=== PATIENT | female | born 1985 | race Caucasian/White ===

== ENCOUNTER 2017-08-23 16:01 | Emergency (ER) | payer MEDICAID, SELFPAY ==
[2017-08-23 16:02] VITALS: BP 136/102; PULSE 105; RESP 20; TEMP 36.9; O2SAT 94; BMI 69.9
--- NOTE | 2017-08-23 16:25 | ED.VISSUMM ---
- ER Visit Summary Date of Service: 08/23/17 Chief Complaint: Back pain History of Present Illness: The patient is a 31 F with no primary care physician. She reports that she has low back pain began approximately 2 months ago. It is worsened over the past 3 days. It is a constant aching pain. It is sharp with bending over, coughing, or movement. She is taken ibuprofen and used ice without relief. States it radiates around the front of her right leg to the level of her knee. She denies any numbness or weakness in her legs. No problems with her bowels or bladder. No groin numbness. No fever, chills, abdominal pain, dysuria, or frequency. Physical Examination: Vitals: Stable. Afebrile. General: A&O x 3. NAD. Cardiovascular exam: Regular rate and rhythm, no murmur, rub or gallop. Respiratory exam: Clear to auscultation bilaterally. No wheezes or stridor. Abdominal exam: Soft, nontender, nondistended, normal bowel sounds. No peritoneal signs. Back: Diffuse moderate tenderness to palpation over the lumbar spine and the paraspinous musculature in the lumbar region. No point tenderness. Negative straight leg bilaterally. 5/5 DF, PF, EHL bilaterally. Normal sensation to light touch throughout. Extremity: No clubbing, cyanosis, or edema. Emergency Department Course and Treatment: An [facility] report was obtained which show she is only had 3 prescriptions for opiates in the past year. She is treated with naproxen, [place], Valium, and prednisone. Treatment Plan: Patient will be discharged with naproxen, 12 [place], Valium, and prednisone. Instructed to follow-up with Dr. Atwood in 1 week if not improving. The symptoms of cauda equina syndrome were discussed and the patient is instructed to return for these. Disposition: To home in improved and stable condition. Impression: 1. Low back pain. This note was generated with [employer]oom dictation software. It may contain incorrect words, spelling, and punctuation that were not noted in review of the chart prior to signing ED Disposition - Plan for ED Patient: Chief Complaint: Back Instructions: ED Sciatica Prescriptions: Diazepam [Valium] 5 mg PO Q8 PRN #10 tablet PRN Reason: Muscle Spasm Hydrocodone/Acetaminophen [[place] 5-325 Tablet] 1 - 2 each PO 4X/DAY PRN PRN 3 Days #12 tablet PRN Reason: Pain Prednisone 10 mg PO DAILY #63 tablet Naproxen [Naprosyn] 500 mg PO BID #14 tablet Referrals: Alba Atwood MD [STAFF PHYSICIAN] - 1 Week if not improving
--- NOTE | 2017-08-23 16:29 | ED.DCSUM_ITS ---
- ER Visit Summary Date of Service: 08/23/17 Chief Complaint: Back pain History of Present Illness: The patient is a 31 F with no primary care physician. She reports that she has low back pain began approximately 2 months ago. It is worsened over the past 3 days. It is a constant aching pain. It is sharp with bending over, coughing, or movement. She is taken ibuprofen and used ice without relief. States it radiates around the front of her right leg to the level of her knee. She denies any numbness or weakness in her legs. No problems with her bowels or bladder. No groin numbness. No fever, chills, abdominal pain, dysuria, or frequency. Physical Examination: Vitals: Stable. Afebrile. General: A&O x 3. NAD. Cardiovascular exam: Regular rate and rhythm, no murmur, rub or gallop. Respiratory exam: Clear to auscultation bilaterally. No wheezes or stridor. Abdominal exam: Soft, nontender, nondistended, normal bowel sounds. No peritoneal signs. Back: Diffuse moderate tenderness to palpation over the lumbar spine and the paraspinous musculature in the lumbar region. No point tenderness. Negative straight leg bilaterally. 5/5 DF, PF, EHL bilaterally. Normal sensation to light touch throughout. Extremity: No clubbing, cyanosis, or edema. Emergency Department Course and Treatment: An [facility]AR[facility] report was obtained which show she is only had 3 prescriptions for opiates in the past year. She is treated with naproxen, [place], Valium, and prednisone. Treatment Plan: Patient will be discharged with naproxen, 12 [place], Valium, and prednisone. Instructed to follow-up with Dr. Atwood in 1 week if not improving. The symptoms of cauda equina syndrome were discussed and the patient is instructed to return for these. Disposition: To home in improved and stable condition. Impression: 1. Low back pain. This note was generated with 5by dictation software. It may contain incorrect words, spelling, and punctuation that were not noted in review of the chart prior to signing ED Disposition - Plan for ED Patient: Chief Complaint: Back Instructions: ED Sciatica Prescriptions: Diazepam [Valium] 5 mg PO Q8 PRN #10 tablet PRN Reason: Muscle Spasm Hydrocodone/Acetaminophen [[place] 5-325 Tablet] 1 - 2 each PO 4X/DAY PRN PRN 3 Days #12 tablet PRN Reason: Pain Prednisone 10 mg PO DAILY #63 tablet Naproxen [Naprosyn] 500 mg PO BID #14 tablet Referrals: Alba Atwood MD [STAFF PHYSICIAN] - 1 Week if not improving
[2017-08-23] MEDS: HYDROcodone Bitartrate/Apap 5/325 Tablet PO (16:47)
[2017-08-23] MEDS: Naproxen 250 MG Tablet 500 MG PO (16:47)
[2017-08-23] MEDS: predniSONE 20 MG Tablet 60 MG PO (16:47)
[2017-08-23] MEDS: diazePAM 5 MG Tablet PO (16:48)
[2017-08-23 16:52] VITALS: PULSE 94; RESP 17; O2SAT 97
== END 2017-08-23 16:52 | disposition home or self-care (01) ==
LOC: ED 16:37
PROVIDERS: Emergency Provider Emergency Medicine
DX: M54.5 Low back pain (principal); Z72.0 Tobacco use
CPT/HCPCS: 99283

== ENCOUNTER 2017-11-23 10:46 | Emergency (ER) | payer MEDICAID, SELFPAY ==
[2017-11-23 10:48] VITALS: BP 167/107; PULSE 106; RESP 18; TEMP 36.8; O2SAT 97; BMI 71.2
[2017-11-23] MEDS: HYDROcodone Bitartrate/Apap 5/325 Tablet PO (12:31)
--- NOTE | 2017-11-23 14:25 | ED.VISSUMM ---
- ER Visit Summary Date of Service: 11/23/17 Chief Complaint: [Neck pain status post fall] History of Present Illness: The patient is a 32 F [presents the emergency department complaint of back pain after sustaining a fall about 1-1/2 weeks ago. Patient states that she was going out to the mailbox in the grass was wet and she slipped and fell onto her buttocks. Patient was seen at urgent care and given indomethacin but having too much discomfort. Patient states pain at times will radiate down her right leg. Patient has had problems with her back in the past and has had sciatica in the past. Patient denies any change in bowel or bladder function. She denies weakness in extremities. She denies any head or neck injury.] Physical Examination: HEENT-PERRLA, EOMI. Cranial nerves II through XII grossly intact. TMs clear. Mucous membranes moist. No adenopathy. Cardiovascular-regular rate and rhythm without murmur or ectopy Lungs-clear to auscultation, chest wall stable without crepitus or subcu emphysema Abdomen-normoactive bowel sounds, soft, nontender, no rebound or rigidity, no peritoneal signs. Back exam-patient does have tenderness palpation diffusely over the lower lumbar spine as well as the right lumbar paraspinal musculature. Patient has tenderness into the right SI joint. She has negative straight leg raises. Deep tendon reflexes are plus out of 4 bilaterally at the patella and Achilles. Patient has normal L5 extension. Patient has normal sensation to light touch. Extremities-intact ?4, normal range of motion, normal pulses, atraumatic[] Test Results: [X-rays of the lumbar spine obtained showed no fractures. X-rays of the pelvis also obtained showed questionable widening of the pubic symphysis and recommended obtaining CT scan of the pelvis. CT of the pelvis showed no obvious fractures and the widening of the pelvis at the pubic symphysis is thought to be chronic and nonacute.] Emergency Department Course and Treatment: [She was given one Rifle in the emergency department.] Treatment Plan: [Patient will be given a prescription for R[place], Flexeril, and Naprosyn. Patient will be given referral to primary care physician for follow-up] Disposition: [Discharged home in stable condition] Impression: [Contusion back Lumbar strain] This note was generated with [employer] software. It may contain incorrect words, spelling, and punctuation that were not noted in review of the chart prior to signing ED Disposition - Plan for ED Patient: Chief Complaint: Back Referrals: Care Physician,No Primary [Primary Care Provider] -
--- NOTE | 2017-11-23 14:27 | ED.DEP ---
ED Disposition - Plan for ED Patient: Chief Complaint: Back Instructions: ED Sprain Strain Lumbar, ED Contusion Back Prescriptions: Hydrocodone/Acetaminophen [[place] 5-325 Tablet] 1 - 2 ea PO 4X/DAY PRN PRN 5 Days #20 tab PRN Reason: Pain Naproxen [Naprosyn] 500 mg PO BID PRN #20 tab Cyclobenzaprine [Flexeril] 10 mg PO TID PRN #20 tab PRN Reason: Muscle Spasm Referrals: Care Physician,No Primary [Primary Care Provider] - Karsten Alarcon MD [STAFF PHYSICIAN] - 3-5 Days
[2017-11-23 14:47] VITALS: PULSE 80; RESP 15; O2SAT 95
== END 2017-11-23 14:48 | disposition home or self-care (01) ==
LOC: ED 11:25
PROVIDERS: Emergency Provider Emergency Medicine
DX: S39.012A Strain of muscle, fascia and tendon of lower back, initial encounter (principal); S30.0XXA Contusion of lower back and pelvis, initial encounter; W01.0XXA Fall on same level from slipping, tripping and stumbling without subsequent striking against object, initial encounter; Y93.9 Activity, unspecified; Y92.9 Unspecified place or not applicable; Y99.9 Unspecified external cause status; Z72.0 Tobacco use; Z79.899 Other long term (current) drug therapy
CPT/HCPCS: 72100; 72170; 72192; 99282

== ENCOUNTER 2017-12-29 13:12 | Emergency (ER) | payer MEDICAID, SELFPAY ==
[2017-12-29 13:12] VITALS: BP 141/93; PULSE 90; RESP 18; TEMP 36.6; O2SAT 98; BMI 70.0
--- NOTE | 2017-12-29 13:57 | ED.DCSUM_ITS ---
- ER Visit Summary Date of Service: 12/29/17 Chief Complaint: Tingling down the back of her right leg. History of Present Illness: The patient is a 32 F history of hip spurs. Patient states she has had low back pain and pain radiating to her right buttock and down hamstring of her right leg. This is been ongoing for last 1-2 weeks. Worse with lifting her leg. She spoke to a nurse over the phone and wanted to have it checked out to make sure was no blood clot. She has never had a DVT or PE. She is on no control pills. She has had no recent travel, surgery or mobilization. She denies any calf pain or swelling. No chest pain or shortness of breath. Physical Examination: Well-appearing female no acute distress. Vital signs stable afebrile. Pulse ox 90% on room air no signs of hypoxia. HEENT exam unremarkable neck nontender. Lungs clear to auscultation bilaterally. Heart regular rhythm no murmur. Abdomen morbidly obese but soft nontender nondistended normal bowel sounds no peritoneal signs. She is moving all 4 extremities. They are neurovascularly intact. Dorsi plantar flexion intact. Normal DP pulse. Normal sensation, motor strength and range of motion of both lower extremities. She has a positive straight leg raise on the right at about 30?. There is no calf tenderness. No edema. No signs of a DVT. Back exam she has tenderness of her right SI joint. His spine is otherwise unremarkable. Neurologic exam is normal. No focal motor or sensory deficits. Test Results: None Emergency Department Course and Treatment: Exam and history are consistent with acute right sciatica. There are no clinical signs or history signs of this being a DVT. Treatment Plan: Patient currently is on indomethacin. She will continue that and follow-up with primary. Disposition: Discharge Impression: Acute right sciatica This note was generated with [employer] dictation software. It may contain incorrect words, spelling, and punctuation that were not noted in review of the chart prior to signing ED Disposition - Plan for ED Patient: Chief Complaint: Lower Extremity Injury Referrals: Care Physician,No Primary [Primary Care Provider] -
--- NOTE | 2017-12-29 13:57 | ED.DEP ---
ED Disposition - Plan for ED Patient: Disposition: Home or Assisted Living Chief Complaint: Lower Extremity Injury Instructions: ED Sciatica Referrals: Care Physician,No Primary [Primary Care Provider] - 3-5 Days if not improving Additional Instructions: Ice to right lower back. Continue the indomethacin. Follow-up your doctor if not improving.
[2017-12-29 14:07] VITALS: BP 148/70; PULSE 95; RESP 14; O2SAT 98
== END 2017-12-29 14:21 | disposition home or self-care (01) ==
PROVIDERS: Emergency Provider Emergency Medicine
DX: M54.41 Lumbago with sciatica, right side (principal); Z79.899 Other long term (current) drug therapy
CPT/HCPCS: 99282

== ENCOUNTER 2018-01-11 19:11 | Emergency (ER) | payer MEDICAID, SELFPAY ==
[2018-01-11 19:12] VITALS: BP 161/81; PULSE 100; RESP 15; TEMP 36.8; O2SAT 95; BMI 70.3
--- NOTE | 2018-01-11 19:34 | RAD_ITS ---
STUDY: X-RAY - SOFT TISSUE NECK REASON FOR EXAM: Female, 32 years old. TONGUE SWELLING Tamp; BURNING, SORE THROAT AND DRY MOUTH, PT TOOK NEW MEDICINE TODAY TECHNIQUE: 2 view(s) of the neck were obtained. COMPARISON: None. FINDINGS: Normal visualized nasopharynx, oropharynx, hypopharynx. Normal epiglottis. Normal visualized subglottic tracheal air column. Normal prevertebral soft tissue structures. Normal visualized osseous structures. The soft tissue structures are unremarkable. RAD/Neck for Soft Tissue IMPRESSION: Normal x-ray soft tissue neck. Electronically Signed: Dereck Saini MD at 20:12 EDT Tel , Service support ,
--- NOTE | 2018-01-11 19:44 | ED.RN ---
PT REPORTS THAT SHE IS NOT SOB AND NOT HAVING ANY DIFFICULTY BREATHING. ITS THAT FEELING LIKE WHEN YOU BURN YOUR TONGUE ON SOMETHING HOT. ITS SCRATCHY AND DRY AND JUST STARTED AFTER I STARTED THIS ZANAFLEX.
--- NOTE | 2018-01-11 20:31 | ED.VISSUMM ---
- ER Visit Summary Date of Service: 01/11/18 Chief Complaint: Patient presents because she believes she is having a reaction to the medication she was prescribed. History of Present Illness: The patient is a 32 F who was prescribed a muscle relaxant. She presents because of burning of her tongue, sublingual region and swelling of her tongue. She contacted the nurse warp tension tester who recommended she come to the emergency department. She has had no drooling. There is no dysphonia. She states she believes something was wrong with the base of her tongue. She denies rhinorrhea, congestion or postnasal drainage. She denies earache, decreased hearing or ringing in her ears. She denies any cardiac respiratory symptoms. Physical Examination: Vital signs noted and pressure is 161/81. BMI is 70.4. Head is atraumatic no cephalic. Pupils equal round reactive paradoxic muscle intact. Sclerae anicteric. Conjunctive is not injected. TMs are normal. There is no angioedema involving the lips, tongue or uvula. Trach is midline. There is no stridor. There is no cervical lymphadenopathy. Heart is regular without murmur, gallop or rub. S1 and S2 are normal. Lungs are clear to auscultation with good movement of air bilaterally. Test Results: Two-view soft tissue x-ray of the neck was obtained interpreted by me as negative. There is no evidence of epiglottitis, sublingual lymphadenopathy, prevertebral space swelling or any abnormality. Emergency Department Course and Treatment: Because patient is insistent that her throat is swollen and there is swelling of her tongue and soft tissue x-ray of the neck was obtained. Treatment Plan: Since radiologic imaging is negative and there is no drooling stridor or any objective findings will discharge and recommend discontinuation of the medication she was prescribed. Disposition: Discharge to home Impression: Subjective swelling tongue with burning sensation unknown etiology, dysphasia This note was generated with Glow[employer] dictation software. It may contain incorrect words, spelling, and punctuation that were not noted in review of the chart prior to signing ED Disposition - Plan for ED Patient: Disposition: Home or Assisted Living Chief Complaint: Allergic Reaction Referrals: Jeffery Hickman NP-C [Primary Care Provider] - 1-2 Days if not improving Additional Instructions: Discontinue medication you were recently prescribed. If you have any drooling, swelling of your lips please return to the emergency department
--- NOTE | 2018-01-11 20:36 | ED.VISSUMM ---
- ER Visit Summary Date of Service: 01/11/18 Chief Complaint: [] History of Present Illness: The patient is a 32 F [] Physical Examination: [] Test Results: [] Emergency Department Course and Treatment: [] Treatment Plan: [] Disposition: [] Impression: [] This note was generated with [employer] dictation software. It may contain incorrect words, spelling, and punctuation that were not noted in review of the chart prior to signing ED Disposition - Plan for ED Patient: Disposition: Home or Assisted Living Chief Complaint: Allergic Reaction Instructions: ED Drug React Adverse Other Referrals: Jeffery Hickman NP-C [Primary Care Provider] - 1-2 Days if not improving Additional Instructions: Discontinue medication you were recently prescribed. If you have any drooling, swelling of your lips please return to the emergency department
== END 2018-01-11 20:45 | disposition home or self-care (01) ==
PROVIDERS: Emergency Provider Emergency Medicine; Family Provider Nurse Practitioner Primary Care; PCP Nurse Practitioner Primary Care
DX: R22.0 Localized swelling, mass and lump, head (principal); K14.6 Glossodynia; R20.8 Other disturbances of skin sensation; R47.02 Dysphasia; E66.9 Obesity, unspecified; Z68.45 Body mass index [BMI] 70 or greater, adult; Z79.899 Other long term (current) drug therapy
CPT/HCPCS: 70360; 99283; A4216

== ENCOUNTER → 2020-02-29 | Outpatient (CLI) | payer MEDICAID, SELFPAY ==
[2020-02-29 16:42] VITALS: BMI 67.8
== END | disposition home or self-care (01) ==
LOC: LABSPEC 18:13
PROVIDERS: PCP Nurse Practitioner Primary Care; Visit Provider Physician Assistant Surgical
DX: R09.89 Other specified symptoms and signs involving the circulatory and respiratory systems (principal)
CPT/HCPCS: 87635; U0003

== ENCOUNTER 2020-12-08 19:01 | Emergency (ER) | payer MEDICAID, SELFPAY ==
[2020-12-08 19:02] VITALS: BP 129/80; PULSE 118; RESP 18; TEMP 36.6; O2SAT 95; BMI 67.6
--- NOTE | 2020-12-08 19:38 | EX.ED.VISEXT ---
HPI History of Present Illness Chief Complaint: Bite Informant: patient Narrative Narrative: 35-year-old female states that approximate 1145 this morning she was stung on her right forearm. She shows me the preacher and appears to be a yellow jacket. She states that she has had progressive erythema and swelling around it. She states that when she was 17 she was stung by a bee in her left forearm swelled. She states that her chest feels somewhat tight. No facial or oropharyngeal swelling. No distant urticaria. ROS ROS ED Constitutional Constitutional ED: Denies chills or weight loss Eyes Eyes: Denies change in vision or diplopia ENT ENT ED: Denies ear pain, rhinorrhea or sore throat Cardiovascular Cardiovascular: Denies chest pain, orthopnea, palpitations or racing heartbeat Respiratory/Chest Respiratory/Chest: Denies cough, dyspnea or orthopnea Gastrointestinal Gastrointestinal: Denies abdominal pain, diarrhea, nausea or vomiting Genitourinary Genitourinary ED: Denies dysuria, hematuria or urinary frequency Musculoskeletal Musculoskeletal: Denies arthralgias or myalgias Integumentary Reports rash; Denies abscess Neurologic Neurologic: Denies headache(s) or weakness Psychiatric Psychiatric: Denies anxiety, depression, suicidal ideation or suicidal thoughts Endocrine Endocrinology: Denies polydipsia, polyphagia or polyuria Allergic/Immunologic Allergic/Immunologic ED: Denies mouth swelling, tongue swelling or urticaria PFSH PFSH Allergy/AdvReac Type Severity Reaction Status Date / Time venom-honey bee Allergy Shortness Verified 12/08/20 19:04 [bee venom (honey bee)] of breath Family History Other ADD (attention deficit disorder) ADHD Lung disease Social History Smoking Status: Current every day smoker tobacco type: cigarettes alcohol intake: current alcohol intake frequency: holidays/special occasions only Alcohol type: beer and wine EXAM Physical Exam Const Vital Signs: 12/08/20 19:02 Temperature 97.9 F Temperature Source Temporal Pulse Rate 118 H Respiratory Rate 18 Blood Pressure 129/80 H Blood Pressure Mean 96 Pulse Ox 95 Oxygen Delivery Method Room Air Positive well nourished and well developed General Appearance ED: well developed HEENT Reports normocephalic, head/scalp atraumatic and moist mucous membranes Eyes PERRL and EOMs intact bilaterally Neck no lymphadenopathy, supple and no JVD Resp normal respiratory effort and clear to auscultation bilaterally Cardio regular rate, regular rhythm and no murmurs GI normal to inspection, nondistended, normoactive bowel sounds and non-tender Palpation: soft Back/Spine no CVA tenderness and normal ROM Extremity Extremity Narrative: The right forearm over the medial anterior surface demonstrates some mild swelling and erythema. There are various pen outlines tracking the growing redness. Total area at this time is about 6 cm. I do not see an obvious stinger in the wound. General Extremety ED: Negative for edema General Extremity: Negative for edema Neuro oriented x3 and CN's II-XII intact bilaterally Sensorium / Orientation: alert Motor Exam: strength 5/5 throughout Psych mental status grossly normal Mood & Affect: Negative for depressed or tearful Skin no rashes or lesions noted and no wounds MDM MDM MDM Narrative Medical decision making narrative: Patient be given a dose of Kenalog Benadryl and Pepcid. Continued Benadryl and Pepcid at home. She may use a topical hydrocortisone if she wishes. I suspect though that this is more of a localized reaction. She was advised this may get somewhat bigger by tomorrow. Return if worsening or any concerns Discharge Plan Triage Chief Complaint: Bite ED Provider: Enoc Weiss Dx/Rx/DC Orders Clinical Impression: Local reaction to bee sting Instructions: ED Insect Sting, Local Reaction Primary Care Provider: Care Physician,No Primary Referrals: Care Physician,No Primary [Primary Care Provider] - Activity Restrictions/Additional Instructions: Continued Benadryl every 6 hours. You may also take 20 mg of Pepcid 2 times a day. The Kenalog will stay with you for the next several days. Disposition Disposition: Home, Self Care
[2020-12-08] MEDS: DiphenhydrAMINE 25 MG Capsule 50 MG PO (19:46)
[2020-12-08] MEDS: Famotidine 20 MG Tablet 40 MG PO (19:47)
[2020-12-08] MEDS: Triamcinolone Acetonide 40 MG/ML Vial 80 MG IM (19:47)
--- NOTE | 2020-12-08 20:23 | CM.ED ---
SW Note Referral Source: Case Find Referral Reason: No Primary Care Physician (PCP) SW reviewed chart and noted that patient has no PCP. SW provided patient with list of [facility] [place] and [facility] Physician List for reference. SW also provided patient with handout ?Where to go When?. No other issues or concerns voiced at this time. SW remains available for any additional needs. Plan: Provided patient with PCP information Maddie MONROY
== END 2020-12-08 20:06 | disposition home or self-care (01) ==
PROVIDERS: Emergency Provider Emergency Medicine
DX: T63.441A Toxic effect of venom of bees, accidental (unintentional), initial encounter (principal); F17.210 Nicotine dependence, cigarettes, uncomplicated
CPT/HCPCS: 96372; 99283

== ENCOUNTER 2021-09-18 13:37 | Outpatient (RCR) | payer MEDICAID, SELFPAY ==
--- NOTE | 2021-09-18 16:03 | HP.PTEVAL_ITS ---
Patient's Visit Information CHENG PARNELL is a 35 year old F referred to Physical Therapy by Dr. Enoc Huber DPM with a diagnosis of Plantar Fascitits. Date of Evaluation: 09/18/21 Physical Therapist: Leda Vides DPT - Visit Plan Frequency: 2x /Week Duration: 4 Weeks Plan: Ultrasound, Manual, Eccentrics and Proprioception. HEP: Gastroc Stretching before getting out of bed in the AM - Subjective Patient reports that she has had foot pain in left>right for over a year- but it continues to get worse. She stands a lot at work. Pain is located along the heel area- if she has been standing for long periods of time the pain radiates to the knee. Describes the pain as sharp. Worst: 9.5/10 Agg: standing for long periods of time (about an hour), getting out of bed in the morning. Eases: getting off her feet- it takes about 30 min for the pain to go away. Best: 0/10. No N/T in the toes- did have burning but that has not happened lately. 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 She wears crocs all the time- does not go anywhere without them. She has tried tennis shoes but can only get an hour before the pain is so severe. She has had x-rays but no MRI- plantar fasciitis and heel spurs. She has been wearing the boot at night- that makes her foot go numb. She has had injections at the end of July which did not help at all. She is more active in the summer but sedentary in the winter. Sleep: disturbed- belly sleeper. PMHx: none Meds: penicillin, Meloxicam (stopped taking it after two days as she felt her chest was going to explode)- she called the MD and is awaiting a call back. - Objective Posture: FH, RS- pt is overweight. Can correct posture with VC's but unable to maintain. Gait: antalgic decreased stance on the left LE- pronation without shoes and eversion with crocs. Worn along outside edge bilaterally. HR/TR: able but reports pain with TR. SLS: 5 sec then LOB reports pain. Palpation: tender along medial arch and into origin of the plantar fascia. ROM: DF: neutral, PF: 50 degrees, Inve: 30 Ever: 20. Strength: 4+/5. Flex: HS: moderate, Gastroc: severe, Soleus: severe - Balance/Special Test Scores Lower Extremity Functional Score: 7 - Goals Goal 1:: Patient will be I with HEP and progression Goal Time Frame: 4-6 Weeks Goal 2:: Patient will ambulate >300 feet with no pain and a normalized gait pattern Goal Time Frame: 4-6 Weeks Goal 3:: Patient will SLS for 15 sec without LOB or pain Goal Time Frame: 4-6 Weeks Goal 4:: Patient will report 80% improvement Goal Time Frame: 4-6 Weeks - Rehabilitation Potential Physical Therapy Diagnosis: Patient presents with hypomobility-she has decreased LE and core strength/stabilization, proprioception, flex and muscular endurance leading to abnormal gait and increased pain with ADL's. Rehabilitation Potential: Good - Anticipated Interventions Patient/Client Instruction: Educate patient on: Benefits of Fitness Program Therapeutic Exercise to Include: Strength training, Endurance training, Balance training, Coordination, Agility training, Body mechanics, Postural training, Flexibilty training, Gait and locomotor training, Neuromotor development, Passive ROM, Active ROM, Dynamic Lumbar Stabilization, Scapular Strength/Stabilization For the Purpose of:: To improve muscle performance and motor function TENS: Yes Cryotherapy (ice pack, ice massage): Yes Thermo therapy (hot pack): Yes Ultrasound (thermal/non thermal): Yes Thank you for the opportunity to evaluate your patient. For Medicare and Medicare HMO plans, please review the plan of care and approve it. It will need to be FAXED BACK to us at [phone] for Medicare purposes. For Medicare only, by signing this I certify the plan of care. Please let me know if there are questions or concerns regarding this plan of care. Physician Signature: Date:
--- NOTE | 2022-03-08 07:51 | HP.PT.NRP ---
CHENG PARNELL was seen in my office for initial evaluation on 09/18/21. The following Plan of Care was established for this patient: Initial Frequency: 2x /Week Initial Duration: 4 Weeks Patient/Client Instruction: Educate patient on: Benefits of Fitness Program Therapeutic Exercise to Include: Strength training, Endurance training, Balance training, Coordination, Agility training, Body mechanics, Postural training, Flexibilty training, Gait and locomotor training, Neuromotor development, Passive ROM, Active ROM, Dynamic Lumbar Stabilization, Scapular Strength/Stabilization For the Purpose of:: To improve muscle performance and motor function TENS: Yes Cryotherapy (ice pack, ice massage): Yes Thermo therapy (hot pack): Yes Ultrasound (thermal/non thermal): Yes This patient was last seen in our office . Pertinent comments regarding their Physical therapy will appear below: Patient has not attended physical therapy in over 30 days- at this time d/c is appropriate and return to the MD for further evaluation as needed At this point I will be discontinuing this patient from physical therapy. I would be happy to see this patient again in the future if found appropriate by the physician. Thank you! Leda Vides, LOVE Balance/Gait/Functional tests - Balance/Special Test Scores Lower Extremity Functional Score: 7
== END 2021-09-18 19:00 | disposition home or self-care (01) ==
LOC: PT 13:37
PROVIDERS: Referring Provider Podiatrist; Visit Provider Podiatrist
DX: M72.2 Plantar fascial fibromatosis (principal)
CPT/HCPCS: 97035; 97161

== ENCOUNTER → 2021-11-28 | Outpatient (CLI) | payer MEDICAID, SELFPAY ==
--- NOTE | 2021-11-28 17:46 | MRI_ITS ---
STUDY: MRI LEFT ANKLE WITHOUT CONTRAST REASON FOR EXAM: Plantar left heel pain for 9 months. TECHNIQUE: Standardized fat and water weighted pulse sequences were obtained in all 3 orthogonal planes. COMPARISON: None. FINDINGS: Normal subcutis adipose space. There is a small ganglion cyst at the dorsal aspect of the distal talus (inversion recovery sagittal images 14-16) measuring 1.2 cm in length There is a very small volume of fluid in the submalleolar posterior tibialis tendon sheath (inversion recovery sagittal image 7). The posterior tibialis tendon is morphologically normal. Normal flexor digitorum longus tendon. Normal flexor hallucis longus tendon. Normal peroneus longus and brevis tendons. Normal tibialis anterior tendon. Normal extensor hallucis longus tendon. Normal extensor digitorum longus tendons. Normal Achilles tendon and teno-osseous insertion. There is periaponeurotic edema and mild interstitial edema of the plantar fascia (inversion recovery sagittal images 10-14). There is mild reactive bone edema in the posterior tuberosity of the calcaneus at the origin of the plantar fascia (inversion recovery sagittal images 11-14). Normal intrinsic muscles of the rearfoot. Normal distal tibiofibular syndesmotic ligamentous complex. Normal lateral ligamentous complex. Normal subtalar ligaments and sinus tarsi. Normal deltoid ligamentous complexes. Normal plantar calcaneonavicular (spring) ligament. Normal tibiotalar articulation. Normal talar dome. There is a posterior subtalar joint effusion (inversion recovery sagittal images 13-17). Normal talonavicular articulation. Normal calcaneocuboid articulation. Normal navicular-cuneiform articulations. MRI/Lower Ext Joint Only (Routine) IMPRESSION: Plantar fasciitis with mild reactive bone edema in the posterior tuberosity of the calcaneus. Very mild posterior tibialis tenosynovitis. Posterior subtalar joint effusion. Small ganglion cyst at the dorsal aspect of the distal talus. Electronically Signed: Larry Palmer MD at 8:30 EDT ,
== END | disposition home or self-care (01) ==
LOC: MRI 17:38
PROVIDERS: Visit Provider Podiatrist
DX: M72.2 Plantar fascial fibromatosis (principal); M67.472 Ganglion, left ankle and foot
CPT/HCPCS: 73721

== ENCOUNTER 2022-03-14 14:49 | Emergency (ER) | payer MEDICAID, SELFPAY ==
[2022-03-14 14:49] VITALS: BP 153/87; PULSE 118; RESP 19; TEMP 36.7; O2SAT 93; BMI 67.1
--- NOTE | 2022-03-14 14:58 | NURSING ---
NO OLD EKGS
--- NOTE | 2022-03-14 15:13 | EKG12_ITS ---
Test Reason : CP Blood Pressure : / mmHG Vent. Rate : 110 BPM Atrial Rate : 110 BPM P-R Int : 132 ms QRS Dur : 086 ms QT Int : 306 ms P-R-T Axes : 055 008 020 degrees QTc Int : 414 ms Sinus tachycardia Otherwise normal ECG Confirmed by CARLEE CARVER, HEYDI ([id number]), manuscript editor ZELDA KNIGHT ([id number]) on 03/16/2022 10:26:40 A M Referred By: AR Confirmed By:LONI BEJARANO MD
[2022-03-14 15:24] LABS: Absolute Lymphocyte Count 0.74 X10^3/uL (0.83-4.51); Absolute Neutrophil Count 4.6 X10^3/uL (2.0-7.7); Basophil# 0.03 X10^3/uL; Basophil% 0.5 % (0-1); Eosinophil# 0.03 X10^3/uL; Eosinophils% 0.5 % (0-5); Hematocrit 42.3 % (37-47); Hemoglobin 14.1 g/dL (12.0-15.0); Lymphocyte # 0.74 X10^3/ul (0.83-4.51); Lymphocyte % 12.1 % (19-41); Mean Corp Hgb Conc 33.3 g/dL (32-36); Mean Corpuscular Hgb 29.1 pg (27.0-32.0); Mean Corpuscular Volume 87.4 fL (81-99); Monocyte# 0.76 X10^3/uL; Monocyte% 12.4 % (0-10); NRBC Flagged by Analyzer 0 % (0-5); Neutrophil # 4.55 X10^3/uL (2.7-7.7); Neutrophil % 74.2 % (47-70); Platelet Count 283 K/mm3 (150-450); RBC Distribution Width CV 12.3 % (11.6-14.6); RBC Distribution Width SD 39.7 fl (35.1-43.9); Red Blood Count 4.84 M/mm3 (4.2-5.4); White Blood Count 6.1 K/mm3 (4.4-11.0)
[2022-03-14 15:27] VITALS: O2SAT 98; O2SAT 99
--- NOTE | 2022-03-14 15:28 | RAD_ITS ---
STUDY: X-RAY CHEST REASON FOR EXAM: Female, 36 years old. Chest pain TECHNIQUE: Single AP portable view of the chest. COMPARISON: Comparison is made with prior study dated 10/27/2015. FINDINGS: The lungs are clear and expanded. There is no demonstrated pleural abnormality. Normal size heart. Normal mediastinum and misbah. Normal visualized pulmonary arteries. Normal visualized aortic arch and descending thoracic aorta. Normal visualized thoracic spine. Normal visualized ribs, clavicles, and shoulders. There is no demonstrated abnormality of the visualized soft tissue structures of the upper abdomen. RAD/Chest 1 View (Portable) IMPRESSION: Normal x-ray examination of the chest. Electronically Signed: Brian Alvarado MD at 15:40 EST ,
[2022-03-14 15:34] LABS: Anion Gap 4 (5-15); BUN 10 mg/dL (7-18); BUN/Creat Ratio 14.5 RATIO (10-20); Calcium,Total 8.9 mg/dL (8.5-10.1); Chloride 107 mmol/L (98-107); Creatinine, Serum 0.69 mg/dL (0.55-1.02); EST Glomerular Filtration Rate 102 mL/min (>60); Est Glom Filt Rate - Afr Amer 123 mL/min (>60); Glucose 134 mg/dL (74-106); Potassium 4.2 mmol/L (3.5-5.1); Sodium Level 137 mmol/L (136-145); Troponin-I HS 4 pg/mL (3.0-54.0)
--- NOTE | 2022-03-14 16:10 | EX.ED.VIS.UR ---
HPI HPI - URI History of Present Illness Chief Complaint: Chest Pain Detail of Chief Complaint: Family members at home with COVID. Patient with URI symptoms and chest dis Informant: patient Onset/Context/Timing Onset: Days Context: Gradual Onset Timing: Continuous Current Severity: Mild Maximum Severity: Mild Associated Symptoms Associated Symptoms: Positive for Nasal Congestion and Nonproductive cough Narrative Narrative: 36-year-old female no seen past medical history. States she has had URI symptoms since Saturday morning. Both her and son at home have COVID. States I feel like crap. Nausea and diarrhea no vomiting. Subjective fever and chills. Chest discomfort. Chest pain is not associated with exertion. Is more with coughing. No hemoptysis. No leg pain or swelling. No history of DVT or PE. Prior similar symptoms: No Recent Illness/Hospitalization: No ROS ROS ED ROS Narrative Cough, nausea, diarrhea and chest discomfort. Review of Systems ROS Unobtainable: Denies due to encephalopathy Constitutional Constitutional ED: Reports chills, fever(s) and subjective Eyes Eyes: Denies blurry vision ENT ENT ED: Reports rhinorrhea; Denies ear pain Cardiovascular Cardiovascular: Reports chest pain; Denies palpitations or racing heartbeat Respiratory/Chest Respiratory/Chest: Reports cough; Denies dyspnea or dyspnea on exertion Gastrointestinal Gastrointestinal: Reports diarrhea and nausea; Denies abdominal pain, constipation, melena or vomiting Genitourinary Genitourinary ED: Denies dysuria or hematuria Musculoskeletal Musculoskeletal: Denies arthralgias Integumentary Denies abscess Neurologic Neurologic: Denies headache(s) Psychiatric Psychiatric: Denies anxiety or depression Endocrine Endocrinology: Denies cold intolerance Hematologic/Lymphatic Hematologic/Lymphatic: Denies easy bleeding Allergic/Immunologic Allergic/Immunologic ED: Denies mouth swelling or tongue swelling PFSH PFSH Medical History no medical history no medical history Allergy/AdvReac Type Severity Reaction Status Date / Time venom-honey bee Allergy Shortness Verified 03/14/22 14:51 [bee venom (honey bee)] of breath Family History Other ADD (attention deficit disorder) ADHD Lung disease Social History Smoking Status: Current every day smoker tobacco type: cigarettes alcohol intake: current alcohol intake frequency: holidays/special occasions only Alcohol type: beer and wine EXAM Physical Exam Narrative Exam Narrative: TachThere is no erythema no acute distress. Vital signs stable afebrile. Pulse ox 93% on room air no hypoxia. H EENT exam unremarkable. Neck nontender no JVD. Lungs clear to auscultation bilaterally. Heart rate of 118 no murmur. Chest wall reproducible tenderness. Abdomen soft nontender. Moving all 4 extremities. Calves are nontender without edema or cords. Equal symmetrical radial pulses. Back nontender. Neurologically she is awake and alert with no focal motor deficits. Const Vital Signs: 03/14/22 14:49 03/14/22 15:27 03/14/22 15:27 Temperature 98.1 F Temperature Source Temporal Pulse Rate 118 H Respiratory Rate 19 H Respiratory Effort Blood Pressure 153/87 H Blood Pressure Mean 109 Pulse Ox 93 99 98 Oxygen Delivery Method Room Air Room Air Room Air 03/14/22 15:29 Temperature Temperature Source Pulse Rate Respiratory Rate Respiratory Effort Short of Breath Blood Pressure Blood Pressure Mean Pulse Ox Oxygen Delivery Method Positive well nourished, well developed and obese; Negative for cachectic or contractures General Appearance ED: well developed and NAD; Negative for cachectic, contractures, cyanotic, diaphoretic or pallor Nutritional Appearance: obese; Negative for cachectic HEENT Reports moist mucous membranes; Denies dry mucous membranes normocephalic and atraumatic; Negative for scalp tenderness Face and Sinus: Negative for sinus tenderness Mouth ED: No dry mucous membranes Mouth: No dry mucous membranes Teeth and Gingiva: Negative for caries Throat: posterior oropharynx normal Eyes PERRL and EOMs intact bilaterally General Eye ED: Negative for pale conjunctiva or scleral icterus Neck no lymphadenopathy, supple, no meningeal signs and no JVD General: Negative for anterior neck swelling or lymphadenopathy Resp normal respiratory effort and clear to auscultation bilaterally Effort and Inspection: Negative for retractions or pain with movement Auscultation: Negative for rales, rhonchi or wheezes Cardio S1 normal heart sound, S2 normal heart sound and no murmurs GI non-tender, non-distended and no masses Inspection: Negative for abdominal distention Auscultation: normoactive bowel sounds Palpation: soft; Negative for tender or guarding Back/Spine no CVA tenderness and normal ROM General Back: Negative for CVA tenderness Cervical Spine: Negative for cervical spine tenderness Thoracic Spine / Upper Back: Negative for thoracic spinal tenderness Lumbar Spine / Lower Back: Negative for lumbar spinal tenderness Sacrum: Negative for tenderness Extremity normal to inspection and full ROM General Extremety ED: Negative for cyanosis, tenderness or other findings General Extremity: Negative for cyanosis or other findings Neuro oriented x3, CN's II-XII intact bilaterally and no sensory deficits noted Sensorium / Orientation: alert, oriented to person, oriented to place and oriented to time; Negative for orientation impaired, lethargic or stuporous Motor Exam: strength 5/5 throughout; Negative for general weakness or strength abnormal Psych mental status grossly normal Appearance: Negative for other Attitude: No agitated Mood & Affect: Negative for depressed, anxious or tearful Skin General Skin Exam: Negative for jaundice or pallor Lesions: no lesions Rashes: no rashes Trauma: Negative for abrasion or laceration MDM MDM MDM Narrative Medical decision making narrative: 36-year-old female with URI symptoms and chest discomfort. I do not think the chest discomfort is cardiac. 2 family members at home have COVID I suspect the patient has COVID even though her COVID test is negative. Due to the elevated D-dimer I will obtain a CTA of the chest. Repeat exam patient is doing well. Clinically I think this is COVID. She will be discharged home. Lab Data Attestation: I reviewed the patient's lab results. Lab results narrative: CBC shows white count of 6.1. H&H of 14 and 42. Electrolytes unremarkable gap of 4 normal being creatinine. Glucose 134. Troponin 4 and only she needs a second troponin because she has had symptoms for 4 straight days. Chest x-ray negative. Rapid COVID test negative. Influenza negative. D-dimer is elevated 0.95. A CTA of the chest to be obtained. CTA showed no PE. Labs: Laboratory Results - last 24 hr 03/14/22 03/14/22 03/14/22 15:06 15:06 16:15 WBC 6.1 RBC 4.84 Hgb 14.1 Hct 42.3 MCV 87.4 MCH 29.1 MCHC 33.3 RDW Std Deviation 39.7 RDW Coeff of Lan 12.3 Plt Count 283 MPV 10.0 Immature Gran % (Auto) 0.300 Neut % (Auto) 74.2 H Lymph % (Auto) 12.1 L [place] % (Auto) 12.4 H Eos % (Auto) 0.5 Baso % (Auto) 0.5 Absolute Neuts (auto) 4.6 Absolute Lymphs (auto) 0.74 L Nucleated RBC % 0 D-Dimer Quant (PE/DVT) 0.95 H* Sodium 137 Potassium 4.2 Chloride 107 Carbon Dioxide 26.0 Anion Gap 4 L BUN 10 Creatinine 0.69 Estim Creat Clear Calc 96.40 Est GFR (MDRD) Af Amer 123 Est GFR (MDRD) Non-Af 102 BUN/Creatinine Ratio 14.5 Glucose 134 H Calcium 8.9 Troponin I High Sens 4 Radiography Diagnostic Testing: Clinical Impression(s) from Imaging Studies Chest X-Ray 03/14/22 15:28 IMPRESSION: Normal x-ray examination of the chest. Electronically Signed: Brian Alvarado MD at 15:40 EST , Chest CTA 03/14/22 16:39 IMPRESSION: Normal CTA chest examination, without a demonstrated pulmonary embolism or arterial dissection. Electronically Signed: Raul Diggs MD at 17:43 EST , Chest x-ray, portable, single view interpreted both by myself and the radiologist shows no acute abnormality. Normal cardiac silhouette. Normal mediastinum. No infiltrates. No pneumonia. Rhythm Strip Rhythm Strip: Sinus Tach Rate: 110 Ectopy: None EKG Initial EKG: Attestation: I personally reviewed and interpreted this EKG as follows: Interpretation: Sinus Rhythm, No Acute Injury Pattern and Sinus Tachycardia Comments: Sinus tachycardia rate of 110 no acute signs of [place] or ischemia. No S1 every 3 T3. Discharge Plan Triage Chief Complaint: Chest Pain ED Provider: De Hood Dx/Rx/DC Orders Clinical Impression: Viral syndrome, Chest pain in adult Instructions: ED Viral Syndrome (Adult) Primary Care Provider: Care Physician,No Primary Referrals: Hamilton Lee MD [Med Staff - [employer]] - 1 Week if not improving Care Physician,No Primary [Primary Care Provider] - Activity Restrictions/Additional Instructions: You have a virus most likely COVID even though your test was negative with 2 family members at home with it. Tylenol and Motrin for body aches, fever and chills. Plenty of fluids and rest. Follow-up with your doctor if not improving or return if worse. Disposition Disposition: Home, Self Care
[2022-03-14 16:33] LABS: D-Dimer Quantitative (DVT/PE) 0.95 FEU/ug/m (0.27-0.49)
--- NOTE | 2022-03-14 16:39 | CT_ITS ---
STUDY: CTA CHEST REASON FOR EXAM: Female, 36 years old. CP with elevated d-dimer RADIATION DOSAGE (If Supplied By Facility): CTDIvol = ( 13.85 ) mGy, DLP = ( 524.81 ) mGycm TECHNIQUE: The examination was performed with the intravenous administration of IV 100mL [id number]-370. Post-processing of the angiographic images was performed, with multiplanar reformation and 3D reconstruction. Individualized dose optimization techniques were used for this CT. COMPARISON: Chest x-ray earlier today FINDINGS: Normal enhancement of the main pulmonary artery and right and left pulmonary arteries. Normal enhancement of the bilateral peripheral pulmonary arteries. There is no demonstrated pulmonary embolism. Normal thoracic aorta and visualized great vessels. There is no demonstrated aortic dissection. Normal heart and pericardium. Normal mediastinum. Normal hilar regions. Normal visualized trachea and bronchi. The lungs are well expanded. Normal pulmonary parenchyma. Normal pleura. Normal chest wall structures. Normal osseous structures. Normal visualized upper abdomen. CT/CTA Chest W/WO Contrast IMPRESSION: Normal CTA chest examination, without a demonstrated pulmonary embolism or arterial dissection. Electronically Signed: Raul Diggs MD at 17:43 EST ,
[2022-03-14 17:55] VITALS: PULSE 76; RESP 22; O2SAT 97
== END 2022-03-14 17:56 | disposition home or self-care (01) ==
PROVIDERS: Emergency Provider Emergency Medicine; Visit Provider Emergency Medicine
DX: R07.9 Chest pain, unspecified (principal); B34.9 Viral infection, unspecified; F17.210 Nicotine dependence, cigarettes, uncomplicated; Z20.822 Contact with and (suspected) exposure to COVID-19; R11.0 Nausea; R19.7 Diarrhea, unspecified; E66.9 Obesity, unspecified
CPT/HCPCS: 36415; 71045; 71275; 80048; 84484; 85025; 85379; 87428; 93005; 99284; Q9967; A4216

== ENCOUNTER 2024-02-24 12:30 | Emergency (ER) | payer MEDICAID, SELFPAY ==
[2024-02-24 12:32] VITALS: BP 146/87; PULSE 94; RESP 18; TEMP 36.2; O2SAT 96
[2024-02-24 12:46] VITALS: BMI 68.5
--- NOTE | 2024-02-24 12:46 | EX.ED.DYSGE1 ---
HPI <OSCAR Solares - Last Filed: 02/24/24 16:01> History of Present Illness Chief Complaint: Abd Pain Narrative Narrative: Patient presenting today with pain just above her bellybutton that she has had since early this morning. She reports that the pain woke her up out of her sleep. She has had nausea with 1 episode of vomiting. She did have a loose stool this morning. She denies fevers, chills, urinary symptoms, and blood in the stool. Previous abdominal surgeries include 3 C-sections. She denies a PMH of any chronic medical conditions. PFSH <OSCAR Solares - Last Filed: 02/24/24 16:01> PFSH Medical History delivery delivered Home Medications ?Medication ?Instructions ?Recorded ?Last Taken ?Type dicyclomine 10 mg capsule 10 mg PO BID PRN abdominal pain 02/24/24 Unknown Rx #14 caps ondansetron 4 mg disintegrating 4 mg PO Q8H PRN PRN Nausea #10 tabs 02/24/24 Unknown Rx tablet Allergy/AdvReac Type Severity Reaction Status Date / Time venom-honey bee (bee venom Allergy Shortness Verified 02/24/24 12:32 (honey bee)) of breath Family History Other ADD (attention deficit disorder) ADHD Lung disease Social History household members: family and children Smoking Status: Current every day smoker tobacco type: cigarettes alcohol intake: current alcohol intake frequency: holidays/special occasions only Alcohol type: beer and wine ROS <OSCAR Solares - Last Filed: 02/24/24 16:01> ROS ED Constitutional Constitutional ED: Denies chills or fever(s) Cardiovascular Cardiovascular: Denies chest pain Respiratory/Chest Respiratory/Chest: Denies cough or dyspnea Gastrointestinal Gastrointestinal: Reports abdominal pain, nausea and vomiting; Denies constipation, diarrhea or melena Genitourinary Genitourinary ED: Denies dysuria, hematuria or urinary urgency Musculoskeletal Musculoskeletal: Denies arthralgias or myalgias Integumentary Denies rash Neurologic Neurologic: Denies weakness EXAM <OSCAR Solares - Last Filed: 02/24/24 16:01> Physical Exam Const Vital Signs: 02/24/24 12:32 02/24/24 14:31 02/24/24 15:19 Temperature 97.1 F L 98 F Temperature Source Temporal Pulse Rate 94 79 79 Respiratory Rate 18 18 18 Blood Pressure 146/87 H 140/87 H 132/65 H Blood Pressure Mean 106 104 87 Pulse Ox 96 98 Positive well nourished, well developed and no apparent distress General Appearance ED: well developed HEENT Reports normocephalic and head/scalp atraumatic Mouth ED: Yes moist mucous membranes normal Eyes PERRL and EOMs intact bilaterally Neck full ROM and supple Chest Wall inspection of chest normal Resp normal respiratory effort and clear to auscultation bilaterally Cardio regular rate and regular rhythm GI soft to palpation, non-tender, non-distended and no masses GI Narrative: Negative McBurney's point tenderness negative Payan sign Palpation: Negative for tender or guarding Back/Spine normal ROM and normal to inspection Extremity normal to inspection and full ROM Neuro oriented x3, CN's II-XII intact bilaterally, moves all extremities, no focal motor deficits and no sensory deficits noted Sensorium / Orientation: awake and alert Psych mental status grossly normal and thought process normal Skin no rashes or lesions noted and no wounds <Dr. Ag Goodwin MD - Last Filed: 02/25/24 06:54> Physical Exam Const Vital Signs: 02/24/24 12:32 02/24/24 14:31 02/24/24 15:19 Temperature 97.1 F L 98 F Temperature Source Temporal Pulse Rate 94 79 79 Respiratory Rate 18 18 18 Blood Pressure 146/87 H 140/87 H 132/65 H Blood Pressure Mean 106 104 87 Pulse Ox 96 98 MDM <OSCAR Solares - Last Filed: 02/24/24 16:01> [facility] Narrative Medical decision making narrative: Patient presenting today with pain just above her bellybutton that started this morning. Her abdomen is soft and nontender. She is nontoxic-appearing. She was given Toradol and Zofran here for pain. Labs reveal leukocytosis of 15.7, her CMP is largely unremarkable aside from alkaline phosphatase of 120. UA negative for UTI. CT shows a small hiatal hernia and fatty liver. On reexamination she does report improvement of her symptoms. I will give her [facility] for home and have given her a PCP referral. Return instructions discussed. She will be discharged home in stable condition. I have personally performed a face to face assessment of the patient and have reviewed the BOB Note. I performed a substantive portion of the visit including all aspects of the following. My [place] findings include: History is called for pain above the umbilicus. She has no known history of emboli call hernia. She has had 3 C-sections. She does report nausea. She has not had vomiting. She had a bowel movement this morning which was normal for her. She denies black or maroon-colored stool. She never had pain like this before. Exam is remarked for a BMI of 68.5. There is pain above the umbilicus. Question of hernia. When I did palpate the area she complained of pain and there was sensation of material that may have been reduced. This is difficult to assess due to body habitus. Bowel sounds are diminished. She has no guarding or peritoneal findings. There is no CVA tenderness noted. Medical Decision Making blood work was obtained. Since white count is elevated 15.7 there may have been a hernia CT of the abdomen pelvis was obtained to determine if there is defect and hernia was reduced and also determine the cause of her abdominal pain. Her exam is limited due to a BMI of 68.5. Other additions or changes: None Lab Data Labs: Laboratory Results - last 24 hr 02/24/24 12:48 WBC 15.7 H RBC 5.37 Hgb 15.5 H Hct 47.5 H MCV 88.5 MCH 28.9 MCHC 32.6 RDW Std Deviation 41.6 RDW Coeff of Lan 12.8 Plt Count 381 MPV 10.0 Immature Gran % (Auto) 0.400 Neut % (Auto) 67.6 Lymph % (Auto) 24.7 [place] % (Auto) 5.2 Eos % (Auto) 1.5 Baso % (Auto) 0.6 Absolute Neuts (auto) 10.6 H Absolute Lymphs (auto) 3.88 Nucleated RBC % 0 Sodium 139 Potassium 3.9 Chloride 106 Carbon Dioxide 26.0 Anion Gap 7 BUN 13 Creatinine 0.93 Estim Creat Clear Calc 139.60 Est GFR (MDRD) Af Amer 86 Est GFR (MDRD) Non-Af 71 BUN/Creatinine Ratio 14.0 Glucose 135 H Calcium 8.9 Total Bilirubin 0.50 AST 14 L ALT 25 Alkaline Phosphatase 120 H Total Protein 8.0 Albumin 3.8 Globulin 4.2 Albumin/Globulin Ratio 0.9 Lipase 19 Serum , Qual NEGATIVE Urine Color Yellow Urine Clarity Sl. Cloudy Urine pH 6.5 Ur Specific [place] 1.010 Urine Protein 15 H Urine Glucose (UA) Normal Urine Ketones Negative Urine Occult Blood Negative Urine Nitrite Negative Urine Bilirubin Negative Urine Urobilinogen Normal Ur Leukocyte Esterase Negative Urine RBC 0 SEEN Urine WBC 0-5 SEEN Ur Squamous Epith Cells 0-5 SEEN Urine Bacteria 1+ Hyaline Casts 0-5 SEEN Urine Mucus 1+ Radiography Diagnostic Testing: Clinical Impression(s) from Imaging Studies Abdomen/Pelvis CT 02/24/24 14:25 IMPRESSION: Fatty infiltration of the liver. Small hiatal hernia. Electronically Signed: Brian Alvarado MD at 15:07 EST , <Dr. Ag Goodwin MD - Last Filed: 02/25/24 06:54> [facility] Narrative Medical decision making narrative: Patient presenting today with pain just above her bellybutton that started this morning. Her abdomen is soft and nontender. She is nontoxic-appearing. I did offer her antiemetics and pain medication but she declined. I have personally performed a face to face assessment of the patient and have reviewed the BOB Note. I performed a substantive portion of the visit including all aspects of the following. My [place] findings include: History is called for pain above the umbilicus. She has no known history of emboli call hernia. She has had 3 C-sections. She does report nausea. She has not had vomiting. She had a bowel movement this morning which was normal for her. She denies black or maroon-colored stool. She never had pain like this before. Exam is remarked for a BMI of 68.5. There is pain above the umbilicus. Question of hernia. When I did palpate the area she complained of pain and there was sensation of material that may have been reduced. This is difficult to assess due to body habitus. Bowel sounds are diminished. She has no guarding or peritoneal findings. There is no CVA tenderness noted. Medical Decision Making blood work was obtained. Since white count is elevated 15.7 there may have been a hernia CT of the abdomen pelvis was obtained to determine if there is defect and hernia was reduced and also determine the cause of her abdominal pain. Her exam is limited due to a BMI of 68.5. Other additions or changes: None Lab Data Attestation: I reviewed the patient's lab results. Lab results narrative: White count is elevated 15.7 thousand. There is no shift. Electrolyte panel is unremarkable. Liver enzymes are unremarkable. Alkaline phosphatase slightly elevated 120. UA reveals 1+ bacteria however she has no urinary symptoms and micro and macro are negative. Labs: Laboratory Results - last 24 hr 02/24/24 12:48 WBC 15.7 H RBC 5.37 Hgb 15.5 H Hct 47.5 H MCV 88.5 MCH 28.9 MCHC 32.6 RDW Std Deviation 41.6 RDW Coeff of Lan 12.8 Plt Count 381 MPV 10.0 Immature Gran % (Auto) 0.400 Neut % (Auto) 67.6 Lymph % (Auto) 24.7 [place] % (Auto) 5.2 Eos % (Auto) 1.5 Baso % (Auto) 0.6 Absolute Neuts (auto) 10.6 H Absolute Lymphs (auto) 3.88 Nucleated RBC % 0 Sodium 139 Potassium 3.9 Chloride 106 Carbon Dioxide 26.0 Anion Gap 7 BUN 13 Creatinine 0.93 Estim Creat Clear Calc 139.60 Est GFR (MDRD) Af Amer 86 Est GFR (MDRD) Non-Af 71 BUN/Creatinine Ratio 14.0 Glucose 135 H Calcium 8.9 Total Bilirubin 0.50 AST 14 L ALT 25 Alkaline Phosphatase 120 H Total Protein 8.0 Albumin 3.8 Globulin 4.2 Albumin/Globulin Ratio 0.9 Lipase 19 Serum , Qual NEGATIVE Urine Color Yellow Urine Clarity Sl. Cloudy Urine pH 6.5 Ur Specific [place] 1.010 Urine Protein 15 H Urine Glucose (UA) Normal Urine Ketones Negative Urine Occult Blood Negative Urine Nitrite Negative Urine Bilirubin Negative Urine Urobilinogen Normal Ur Leukocyte Esterase Negative Urine RBC 0 SEEN Urine WBC 0-5 SEEN Ur Squamous Epith Cells 0-5 SEEN Urine Bacteria 1+ Hyaline Casts 0-5 SEEN Urine Mucus 1+ Radiography Diagnostic Testing: Clinical Impression(s) from Imaging Studies Abdomen/Pelvis CT 02/24/24 14:25 IMPRESSION: Fatty infiltration of the liver. Small hiatal hernia. Electronically Signed: Brian Alvarado MD at 15:07 EST , Discharge Plan Triage Chief Complaint: Abd Pain ED Midlevel Provider: Agnes Almendarez ED Provider: Ag Goodwin Dx/Rx/DC Orders Clinical Impression: Abdominal pain, Nausea & vomiting, Hernia, hiatal, Leukocytosis, Body mass index (BMI) greater than 50, Elevated blood-pressure reading without diagnosis of hypertension Instructions: Abdominal Pain, ED Vomiting (Adult) Prescriptions: New dicyclomine 10 mg capsule 10 mg PO BID PRN (Reason: abdominal pain) Qty: 14 0RF ondansetron 4 mg tablet,disintegrating 4 mg PO Q8H PRN PRN (Reason: Nausea) Qty: 10 0RF Primary Care Provider: Care Physician,No Primary Referrals: Care Physician,No Primary [Primary Care Provider] - Activity Restrictions/Additional Instructions: Follow-up with your PCP and return for any worsening of your symptoms. Print Language: Kenyan Disposition Disposition: Home, Self Care Discharge Date/Time: 02/24/24 15:30
[2024-02-24 12:52] LABS: Red Blood Cells-Urine 0 SEEN /hpf (0-5)
[2024-02-24 13:00] LABS: Absolute Lymphocyte Count 3.88 X10^3/uL (0.83-4.51); Absolute Neutrophil Count 10.6 X10^3/uL (2.0-7.7); Basophil# 0.09 X10^3/uL; Basophil% 0.6 % (0-1); Eosinophil# 0.24 X10^3/uL; Eosinophils% 1.5 % (0-5); Hematocrit 47.5 % (37-47); Hemoglobin 15.5 g/dL (12.0-15.0); Lymphocyte # 3.88 X10^3/ul (0.83-4.51); Lymphocyte % 24.7 % (19-41); Mean Corp Hgb Conc 32.6 g/dL (32-36); Mean Corpuscular Hgb 28.9 pg (27.0-32.0); Mean Corpuscular Volume 88.5 fL (81-99); Monocyte# 0.82 X10^3/uL; Monocyte% 5.2 % (0-10); NRBC Flagged by Analyzer 0 % (0-5); Neutrophil # 10.59 X10^3/uL (2.7-7.7); Neutrophil % 67.6 % (47-70); Platelet Count 381 K/mm3 (150-450); RBC Distribution Width CV 12.8 % (11.6-14.6); RBC Distribution Width SD 41.6 fl (35.1-43.9); Red Blood Count 5.37 M/mm3 (4.2-5.4); White Blood Count 15.7 K/mm3 (4.4-11.0)
[2024-02-24 13:02] LABS: Internal QC Validated? YES +Cl - CLEAR BKGD; Pregnancy, Serum, hCG Quali. NEGATIVE Negative
[2024-02-24 13:03] LABS: Color, Urine Yellow (Yellow); Glucose, Dipstick Normal (Normal); Ketone-Dipstick Negative (Negative); Leukocyte Esterase-Dipstick Negative /ul (Negative); Nitrite-Dipstick Negative (Negative); Occult Blood-Urine Negative /ul (Negative); Protein-Dipstick 15 mg/dl (Negative); Urine Bilirubin Dipstick Negative (Negative); Urine Clarity Sl. Cloudy (Clear); Urine Urobilinogen Normal (Normal); Urine pH 6.5 (5.0 - 8.0)
[2024-02-24 13:10] LABS: ALB/GLOB Ratio 0.9 RATIO (0.9-2.4); AST(SGOT) 14 U/L (15-37); Alanine Aminotransfer ALT/SGPT 25 U/L (13-56); Albumin, Serum 3.8 g/dL (3.2-5.0); Alkaline Phosphatase 120 U/L (45-117); Anion Gap 7 (5-15); BUN 13 mg/dL (7-18); Calcium,Total 8.9 mg/dL (8.5-10.1); Chloride 106 mmol/L (98-107); Creatinine, Serum 0.93 mg/dL (0.55-1.02); EST Glomerular Filtration Rate 71 mL/min (>60); Est Glom Filt Rate - Afr Amer 86 mL/min (>60); Globulin 4.2 g/dL (2.2-4.2); Glucose 135 mg/dL (74-106); Lipase 19 U/L (13-75); Potassium 3.9 mmol/L (3.5-5.1); Sodium Level 139 mmol/L (136-145)
[2024-02-24] MEDS: Ondansetron 4 MG/2 ML Vial IV (13:37)
[2024-02-24 13:43] LABS: Hyaline Cast 0-5 SEEN /lpf (0-5)
[2024-02-24 13:44] LABS: Bacteria 1+ /hpf (None Seen); Mucous, Urine 1+ /hpf (<or=2+); Squamous Epithelial Cells - UA 0-5 SEEN /hpf (5-10)
[2024-02-24 13:45] LABS: White Blood Cells 0-5 SEEN /hpf (0-5)
--- NOTE | 2024-02-24 14:25 | CT_ITS ---
STUDY: CT ABDOMEN AND PELVIS WITH CONTRAST REASON FOR EXAM: Female, 38 years old. Periumbilical abdominal pain RADIATION DOSAGE (If Supplied By Facility): CTDIvol = ( 17.07 ) mGy, DLP = ( 1315.82 ) mGycm TECHNIQUE: Transaxial images were obtained from the dome of the diaphragm to the symphysis pubis without oral contrast. IV 100mL Isovue-300 was administered. Sagittal and coronal images were reconstructed. Study is slightly limited due to the patient''s body habitus. Individualized dose optimization techniques were used for this CT. COMPARISON: Comparison is made with prior study dated July 12, 2016. FINDINGS: The visualized lung bases are unremarkable. The visualized portions of the heart are within normal limits. There is decreased attenuation of the liver consistent with steatosis. Normal gallbladder and extrahepatic biliary system. Normal spleen. Normal pancreas. There is a small, circumscribed, smooth, low attenuation left adrenal mass, consistent with an adrenal adenoma. This measures 1.5 cm. Normal right adrenal gland. Normal right kidney. Normal left kidney. There is a small hiatal hernia. Normal small intestine. Normal colon. The appendix is visualized and appears normal. Normal abdominal aorta. Normal inferior vena cava. There is a small retroperitoneal lymphadenopathy with enlarged nodes no greater than 10mm in the short axis diameter. Normal urinary bladder. Stable small calcified phlebolith in the right pelvis. Normal abdominal wall. Normal osseous structures. CT/Abdomen/Pelvis W IV Cont ONLY IMPRESSION: Fatty infiltration of the liver. Small hiatal hernia. Electronically Signed: Brain Alvarado MD at 15:07 EST ,
[2024-02-24 14:31] VITALS: BP 140/87; PULSE 79; RESP 18
[2024-02-24] MEDS: Ketorolac 15 MG/ML Vial IV (15:17)
[2024-02-24 15:19] VITALS: BP 132/65; PULSE 79; RESP 18; TEMP 36.6; O2SAT 98
== END 2024-02-24 15:30 | disposition home or self-care (01) ==
PROVIDERS: Physician Assistant; Emergency Provider Emergency Medicine; Visit Provider Emergency Medicine
DX: R10.10 Upper abdominal pain, unspecified (principal); R11.2 Nausea with vomiting, unspecified; R03.0 Elevated blood-pressure reading, without diagnosis of hypertension; K44.9 Diaphragmatic hernia without obstruction or gangrene; D72.829 Elevated white blood cell count, unspecified; F17.210 Nicotine dependence, cigarettes, uncomplicated
CPT/HCPCS: 74177; 80053; 81001; 83690; 84703; 85025; 96374; 96375; 99283; Q9967; A4216; J2405